=== PATIENT | female | born 1995 | race African-American/Black ===

== ENCOUNTER 2019-06-06 16:27 | Emergency (ER) | payer OTHER ==
[~2019-06-06] VITALS: Ht 172.7 cm; Wt 79.8 kg
[2019-06-06 16:28] VITALS: BP 132/80
--- NOTE | 2019-06-06 19:31 | REPVR ---
PROCEDURE INFORMATION: Exam: US Pelvis Complete, Transabdominal Exam date and time: 06/06/2019 6:36 PM Clinical history: 23 years old, female; Pelvic pain; Additional info: Iud placement TECHNIQUE: Imaging protocol: Real-time transabdominal pelvic ultrasound with image documentation. Complete exam. Other technique: Real-time transabdominal and transvaginal pelvic ultrasound (complete) with 2-D estrada scale, Duplex color Doppler flow and spectral waveform analysis with image documentation. Transvaginal imaging was used for better evaluation of the endometrium and adnexa. COMPARISON: No relevant prior studies available. FINDINGS: Uterus/cervix: The anteverted uterus is normal, measuring 7.6 x 4.1 x 4.7 cm. The endometrial stripe is normal, measuring 2.7 mm in thickness. An IUD is present in satisfactory position with the distal tip of the IUD within the endometrial cavity of the fundus. Right adnexa: The right ovary is normal, measuring 3.3 by 1.8 x 2.3 cm. No mass. Normal arterial and venous blood flow. Left adnexa: The left ovary measures 4.8 x 3.1 x 2.7 cm with a hypo echoic mass with low level echoes in the mass together with an anechoic area containing a 5.1 mm echogenic nodule on image 65 of series 1. No mass. Normal arterial and venous blood flow. Free fluid: None. Bladder: Normal. IMPRESSION: 1. An IUD is present in the uterus in normal position. 2. A questionable dermoid cyst is seen in or adjacent to the left ovary. I would recommend an MRI of the pelvis with and without IV contrast for further evaluation. Electronically signed by: Brandon Ordoñez On 06/06/2019 19:30:39 PM
--- NOTE | 2019-06-08 14:14 | ED PDOC ---
Post-Departure Follow-Up [facility] faxed formal report of pelvic us for fu Lenin Andrade MD Jun 08, 2019 14:14
== END 2019-06-06 19:58 | disposition home or self-care (01) ==
LOC: M ED 16:27
DX: N83.202 Unspecified ovarian cyst, left side (principal); Z30.431 Encounter for routine checking of intrauterine contraceptive device

== ENCOUNTER 2019-08-28 17:12 | Emergency (ER) | payer OTHER ==
[~2019-08-28] VITALS: Ht 172.7 cm; Wt 82.1 kg
[2019-08-28] MEDS ORDERED: LIDOCAINE 1% SDV 5 ML VIAL DILUENT ONE (18:00)
[2019-08-28] MEDS ORDERED: cefTRIAXone SOD 250 MG VIAL (J0696) IM ONE (18:00)
[2019-08-28] MEDS ORDERED: AZITHROMYCIN 250 MG TAB PO ONE (18:00)
[2019-08-28] MEDS ORDERED: ONDANSETRON 4 MG ORAL DISINTEGRATING TAB (Q0162 PER 1MG) PO ONE (19:00)
[2019-08-28] MEDS ORDERED: FLAG500T PO (19:13)
[2019-08-28 19:22] VITALS: BP 128/86
[2019-08-28 20:13] LABS: CHLAMYDIA DNA AMPLIFICATION NEGATIVE (NEGATIVE); GC DNA AMPLIFICATION NEGATIVE (NEGATIVE)
[2019-08-29 13:30] LABS: HEPATITIS B SURFACE ANTIBODY POSITIVE (POSITIVE); HEPATITIS B SURFACE ANTIGEN NEGATIVE (NEGATIVE); HEPATITIS C VIRUS ABY INDEX < 0.0 INDEX (<0.8); HIV 1&2 SCREEN CENTAUR NEGATIVE (NEGATIVE)
== END 2019-08-28 19:23 | disposition home or self-care (01) ==
LOC: M ED 17:12
DX: Z20.2 Contact with and (suspected) exposure to infections with a predominantly sexual mode of transmission (principal)
CPT/HCPCS: 81001; 86706; 86780; 86803; 87210; 87340; 87389; 87661; 96372; 99283; J0696; Q0162